=== PATIENT | male | born 1980 | race African-American/Black ===

== ENCOUNTER 2018-05-11 00:25 | Emergency (ER) | payer SELFPAY ==
[~2018-05-11] VITALS: Ht 170.2 cm; Wt 69.0 kg
[~2018-05-11 00:25] MED LIST: SULF1TAB48 PO
[2018-05-11 01:41] LABS: CLARITY URINE CLOUDY (CLEAR); COLOR URINE DARK YELLOW (YELLOW); KETONES URINE TRACE (NEGATIVE); LEUKOCYTE ESTERASE URINE 1+ (NEGATIVE); NITRITE URINE NEGATIVE (NEGATIVE); OCCULT BLOOD URINE NEGATIVE (NEGATIVE); PROTEIN URINE TRACE (NEGATIVE); SPECIFIC GRAVITY URINE 1.036 (1.005-1.030)
[2018-05-11] MEDS ORDERED: CEFTRIAXONE SODIUM 250 MG/VIAL IM ONE (02:45)
[2018-05-11] MEDS ORDERED: AZITHROMYCIN 500 MG TABLET PO ONE (02:45)
[2018-05-11] MEDS ORDERED: LIDOCAINE HCL/PF 1% 10 MG/ML 5ML VIAL IJ ONE (03:00)
[2018-05-11 03:47] VITALS: BP 135/79
== END 2018-05-11 04:46 | disposition home or self-care (01) ==
LOC: ER 00:25
DX: N39.0 Urinary tract infection, site not specified (principal); B00.9 Herpesviral infection, unspecified; A64 Unspecified sexually transmitted disease; F17.200 Nicotine dependence, unspecified, uncomplicated; F12.10 Cannabis abuse, uncomplicated
CPT/HCPCS: 81003; 87086; 96372; 99283; J0696; J3490

== ENCOUNTER 2018-10-12 23:13 | Emergency (ER) | payer SELFPAY ==
[~2018-10-12] VITALS: Ht 170.2 cm; Wt 69.0 kg
[2018-10-13 00:05] VITALS: BP 124/80
[2018-10-13] MEDS ORDERED: AZITHROMYCIN 500 MG TABLET PO ONE (01:15)
[2018-10-13] MEDS ORDERED: CEFTRIAXONE SODIUM 250 MG/VIAL IM ONE (01:15)
[2018-10-13 02:12] LABS: CLARITY URINE CLEAR (CLEAR); COLOR URINE DARK YELLOW (YELLOW); KETONES URINE TRACE (NEGATIVE); LEUKOCYTE ESTERASE URINE TRACE (NEGATIVE); NITRITE URINE NEGATIVE (NEGATIVE); OCCULT BLOOD URINE NEGATIVE (NEGATIVE); PH URINE 5.5 (4.5-8.0); PROTEIN URINE NEGATIVE (NEGATIVE); SPECIFIC GRAVITY URINE 1.037 (1.005-1.030)
== END 2018-10-13 01:52 | disposition home or self-care (01) ==
LOC: ER 23:13
DX: Z20.2 Contact with and (suspected) exposure to infections with a predominantly sexual mode of transmission (principal)
CPT/HCPCS: 81003; 96372; 99283; J0696

== ENCOUNTER 2019-06-05 08:20 | Emergency (ER) | payer MEDICAID ==
[~2019-06-05] VITALS: Ht 167.6 cm; Wt 68.0 kg
[2019-06-05] MEDS ORDERED: CEFTRIAXONE SODIUM 250 MG/VIAL IM ONE (09:00)
[2019-06-05] MEDS ORDERED: AZITHROMYCIN 500 MG TABLET PO ONE (09:00)
[2019-06-05] MEDS ORDERED: KETOROLAC 30MG/ML VIAL IV ONE (09:15)
[2019-06-05 09:16] LABS: CLARITY URINE CLEAR (CLEAR); COLOR URINE YELLOW (YELLOW); KETONES URINE NEGATIVE (NEGATIVE); LEUKOCYTE ESTERASE URINE NEGATIVE (NEGATIVE); NITRITE URINE NEGATIVE (NEGATIVE); OCCULT BLOOD URINE NEGATIVE (NEGATIVE); PROTEIN URINE NEGATIVE (NEGATIVE); SPECIFIC GRAVITY URINE 1.029 (1.005-1.030)
[2019-06-05 11:15] LABS: BASOPHILS % 0.9 % (0.0-2.0); EOSINOPHILS % 1.5 % (0.0-5.0); HEMATOCRIT. 37.4 % (42.0-52.0); HEMOGLOBIN. 12.8 g/dL (14.0-18.0); LYMPHOCYTES % 20.3 % (20.0-50.0); MEAN CORPUSCULAR HEMOGLOBIN 27.6 pg (28.0-32.0); MEAN CORPUSCULAR VOLUME 80.6 fL (80.0-94.0); MEAN PLATELET VOLUME 7.6 fl (7.4-10.4); MONOCYTES % 7.4 % (2.0-8.0); NEUTROPHILS % 69.9 % (40.0-76.0); PLATELET 391 x1000/uL (130-400); RED BLOOD CELL COUNT 4.64 mill/uL (4.7-6.1); RED CELL DISTRIBUTION WIDTH 14.1 % (11.6-14.6)
[2019-06-05 11:22] LABS: CHLORIDE 103 mEq/L (98-107)
[2019-06-05 11:23] LABS: INR 0.9; PROTHROMBIN TIME 10.2 sec (9.6-11.0)
[2019-06-05] MEDS ORDERED: SODIUM CHLORIDE 0.9% 1000ML BAG (SEPSIS BOLUS) IV ONE (12:00)
[2019-06-05] MEDS ORDERED: LIDOCAINE HCL 1% 20ML VIAL (Pyxis) INJ INFIL ONE (12:00)
[2019-06-05 16:08] VITALS: BP 138/87
== END 2019-06-05 16:11 | disposition home or self-care (01) ==
LOC: ER 08:20
DX: N49.2 Inflammatory disorders of scrotum (principal); N43.3 Hydrocele, unspecified; Z20.2 Contact with and (suspected) exposure to infections with a predominantly sexual mode of transmission; E87.2 Acidosis; R03.0 Elevated blood-pressure reading, without diagnosis of hypertension
CPT/HCPCS: 36415; 76870; 80053; 81003; 83605; 83690; 85025; 85610; 87040; 87086; 93976; 96372; 96374; 99285; J0696; J1885; J3490; J7030

== ENCOUNTER 2019-09-05 16:23 | Emergency (ER) | payer MEDICAID ==
[~2019-09-05] VITALS: Ht 170.2 cm; Wt 70.0 kg
[2019-09-05 16:37] VITALS: BP 134/72
[2019-09-05] MEDS ORDERED: AZITHROMYCIN 500 MG TABLET PO ONE (18:45)
[2019-09-05] MEDS ORDERED: CEFTRIAXONE SODIUM 250 MG/VIAL IM ONE (18:45)
[2019-09-05] MEDS ORDERED: PENICILLIN G BENZATHINE 2,400,000 UNITS/4ML SYR IM ONE (18:45)
[2019-09-05 20:30] LABS: CLARITY URINE CLOUDY (CLEAR); COLOR URINE DARK YELLOW (YELLOW); KETONES URINE TRACE (NEGATIVE); LEUKOCYTE ESTERASE URINE 2+ (NEGATIVE); NITRITE URINE NEGATIVE (NEGATIVE); OCCULT BLOOD URINE NEGATIVE (NEGATIVE); PROTEIN URINE TRACE (NEGATIVE); SPECIFIC GRAVITY URINE 1.028 (1.005-1.030)
== END 2019-09-05 19:57 | disposition home or self-care (01) ==
LOC: ER 16:23
DX: A51.0 Primary genital syphilis (principal)
CPT/HCPCS: 81003; 87086; 96372; 99284; J0561; J0696